=== PATIENT | male | born 1950 | race Caucasian/White ===

== ENCOUNTER 2018-03-12 00:14 | Emergency (ER) | payer MEDICARE, OTHER ==
[~2018-03-12 00:14] MED LIST: ASPI-1471 PO; ATOR-1 PO; CAR6.25 PO; LISI5TAB25 PO; NITR0.4T3 SL; PANT40TA65 PO; PRAS10TA PO
--- NOTE | 2018-03-12 00:43 | ER Report ---
History and Physical Time Seen By MD: 00:42 Hx. of Stated Complaint: PATIENT STATES HE HAS HAD A BURNING IN HIS CHEST SINCE AROUND 1700. PATIENT HAS NOT TAKEN ANY MEDICAITONS PRIOR TO COMING TO ER. HPI/ROS CHIEF COMPLAINT: chest burning HISTORY OF PRESENT ILLNESS: This is a 67 year old male. He is having some burning in his chest. Feels that this is heartburn. Started at 1700. Does not increase with exertion. No nausea or vomiting. No shortness of breath. Has history of heart attacks. Has not had any heart problems for several years now. Just wanted to make sure it was not his heart. No fevers or chills. Has mild chronic cough. Normal bowel and bladder function. Allergies: Coded Allergies: No Known Drug Allergies (Unverified , 03/12/18) Home Meds Reported Medications Prasugrel Hcl (EFFIENT) 10 Mg Tablet, 10 MG PO QDAY 02/06/17 Pantoprazole Sodium (PANTOPRAZOLE SODIUM) 40 Mg Tablet.dr, 40 MG PO QDAY, TAB.SR 02/06/17 Nitroglycerin (NITROGLYCERIN) 0.4 Mg Tab.subl, 0.4 MG SL Q5MIN 02/06/17 Lisinopril (LISINOPRIL) 5 Mg Tablet, 5 MG PO QDAY, TAB 02/06/17 Carvedilol (CARVEDILOL) 6.25 Mg Tab, 6.25 MG PO BID, TAB 02/06/17 Atorvastatin Calcium (ATORVASTATIN CALCIUM) 80 Mg Tablet, 1 TAB PO QDAY, TAB 02/06/17 Aspirin (ASPIR 81) 81 Mg Tablet.dr, 81 MG PO QDAY, TAB 02/06/17 Reviewed Nurses Notes: Yes Hx Substance Use Disorder: No Hx Alcohol Use: No Constitutional Vital Sign - Last 24 Hours 03/12/18 03/12/18 03/12/18 03/12/18 00:14 00:18 00:19 00:29 Pulse ??? 76 92 Resp 20 23 B/P (MAP) 141/96 141/96 (111) Pulse Ox 91 90 O2 Delivery Room Air 03/12/18 03/12/18 03/12/18 03/12/18 00:30 00:44 01:00 01:14 Pulse 74 75 Resp 12 B/P (MAP) 129/84 (99) 117/85 (96) Pulse Ox 90 91 03/12/18 03/12/18 03/12/18 03/12/18 01:29 01:30 01:44 01:59 Pulse 78 75 72 Resp 19 14 B/P (MAP) 107/79 (88) Pulse Ox 90 89 03/12/18 03/12/18 03/12/18 02:00 02:05 02:30 Pulse 74 Resp 14 B/P (MAP) 119/78 (92) 117/81 (93) Pulse Ox 89 Physical Exam General Appearance: The patient is alert. No acute distress. Eyes: Pupils are equal, round. No pallor, injection or icterus. ENT: Mucous membranes are moist. Normal oral mucosa. Posterior oropharynx is normal. Neck: Supple and non tender. Respiratory: Lungs are clear to auscultation. Cardiovascular: Regular rate and rhythm. No murmurs, gallops or rubs. Normal capillary refill. Gastrointestinal: Abdomen is soft and non tender. Normal active bowel sounds. Neurological: Alert and oriented x3. Skin: Warm and dry. DIFFERENTIAL DIAGNOSIS: After history and physical exam, differential diagnosis was considered for chest pain including but not limited to myocardial ischemia, reflux, chest wall pain, pleural inflammation and pulmonary infectious causes. Medical Decision Making Data Points Result Diagram: 03/12/18 0120 03/12/18 0120 Laboratory Hematology Test 03/12/18 01:20 Red Blood Count 5.52 M/uL (4.00-5.60) Mean Corpuscular Volume 87.1 fL (80.0-96.0) Mean Corpuscular Hemoglobin 30.6 pg (26.0-33.0) Mean Corpuscular Hemoglobin Concent 35.2 g/dL (32.0-36.0) Red Cell Distribution Width 14.7 % (11.5-14.5) Mean Platelet Volume 7.5 fL (7.2-11.1) Neutrophils (%) (Auto) 82.9 % (39.4-72.5) Lymphocytes (%) (Auto) 9.4 % (17.6-49.6) Monocytes (%) (Auto) 6.1 % (4.1-12.4) Eosinophils (%) (Auto) 1.1 % (0.4-6.7) Basophils (%) (Auto) 0.5 % (0.3-1.4) Nucleated RBC Relative Count (auto) 0.1 /100WBC Neutrophils # (Auto) 9.5 K/uL (2.0-7.4) Lymphocytes # (Auto) 1.1 K/uL (1.3-3.6) Monocytes # (Auto) 0.7 K/uL (0.3-1.0) Eosinophils # (Auto) 0.1 K/uL (0.0-0.5) Basophils # (Auto) 0.1 K/uL (0.0-0.1) Nucleated RBC Absolute Count (auto) 0.02 K/uL Sodium Level 136 mmol/L (137-145) Potassium Level 3.6 mmol/L (3.5-5.0) Chloride Level 96 mmol/L (98-107) Carbon Dioxide Level 29 mmol/L (22-30) Blood Urea Nitrogen 10 mg/dl (9-21) Creatinine 0.80 mg/dl (0.66-1.25) Glomerular Filtration Rate Calc > 60.0 Random Glucose 112 mg/dl (75-110) Calcium Level 9.5 mg/dl (8.4-10.2) Total Bilirubin 1.4 mg/dl (0.2-1.3) Aspartate Amino Transf (AST/SGOT) 27 U/L (0-35) Alanine Aminotransferase (ALT/SGPT) 27 U/L (0-56) Alkaline Phosphatase 116 U/L (0-126) Troponin I < 0.012 ng/ml Total Protein 7.7 gm/dl (6.3-8.2) Albumin 4.1 g/dl (3.5-5.0) Amylase Level 93 U/L (0-110) Lipase 73 U/L (23-300) Chemistry Test 03/12/18 01:20 White Blood Count 11.5 k/uL (4.5-11.0) Red Blood Count 5.52 M/uL (4.00-5.60) Hemoglobin 16.9 g/dL (14.0-18.0) Hematocrit 48.0 % (42.0-52.0) Mean Corpuscular Volume 87.1 fL (80.0-96.0) Mean Corpuscular Hemoglobin 30.6 pg (26.0-33.0) Mean Corpuscular Hemoglobin Concent 35.2 g/dL (32.0-36.0) Red Cell Distribution Width 14.7 % (11.5-14.5) Platelet Count 207 K/uL (150-450) Mean Platelet Volume 7.5 fL (7.2-11.1) Neutrophils (%) (Auto) 82.9 % (39.4-72.5) Lymphocytes (%) (Auto) 9.4 % (17.6-49.6) Monocytes (%) (Auto) 6.1 % (4.1-12.4) Eosinophils (%) (Auto) 1.1 % (0.4-6.7) Basophils (%) (Auto) 0.5 % (0.3-1.4) Nucleated RBC Relative Count (auto) 0.1 /100WBC Neutrophils # (Auto) 9.5 K/uL (2.0-7.4) Lymphocytes # (Auto) 1.1 K/uL (1.3-3.6) Monocytes # (Auto) 0.7 K/uL (0.3-1.0) Eosinophils # (Auto) 0.1 K/uL (0.0-0.5) Basophils # (Auto) 0.1 K/uL (0.0-0.1) Nucleated RBC Absolute Count (auto) 0.02 K/uL Glomerular Filtration Rate Calc > 60.0 Calcium Level 9.5 mg/dl (8.4-10.2) Total Bilirubin 1.4 mg/dl (0.2-1.3) Aspartate Amino Transf (AST/SGOT) 27 U/L (0-35) Alanine Aminotransferase (ALT/SGPT) 27 U/L (0-56) Alkaline Phosphatase 116 U/L (0-126) Troponin I < 0.012 ng/ml Total Protein 7.7 gm/dl (6.3-8.2) Albumin 4.1 g/dl (3.5-5.0) Amylase Level 93 U/L (0-110) Lipase 73 U/L (23-300) EKG/Imaging EKG Interpretation 12 lead EKG: Rhythm: normal sinus rhythm, rate 74 [place]: Left axis deviation QRS: normal ST segments: Nonspecific, no ST elevation or depression ED Course/Re-evaluation Clinical Indication for ER IV: IV Access ED Course Labs unremarkable. Negative troponin and EKG. Improved with GI cocktail. See instructions below. Decision to Disposition Date: March 12, 2018 Decision to Disposition Time: 02:33 Depart Departure Latest Vital Signs Vital Signs Date Time Temp Pulse Resp B/P (MAP) Pulse Ox O2 Delivery O2 Flow Rate FiO2 03/12/18 02:30 117/81 (93) 03/12/18 02:05 74 14 89 03/12/18 00:18 Room Air Impression: Primary Impression: GERD (gastroesophageal reflux disease) Condition: Improved Disposition: HOME OR SELF-CARE Patient Instructions: Gastroesophageal Reflux Disease (ED) Problem Qualifiers Primary Impression: GERD (gastroesophageal reflux disease) Esophagitis presence: esophagitis presence not specified Qualified Codes: K21.9 - Gastro-esophageal reflux disease without esophagitis DARRELL YEAGER MD March 12, 2018 00:43
[2018-03-12] MEDS ORDERED: PANTOPRAZOLE SOD 40 MG IV VIAL IVP ONE (01:15)
[2018-03-12] MEDS ORDERED: MAG HYD/AL HYD/SIMETH 30ML UDC PO ONE (01:15)
[2018-03-12] MEDS ORDERED: ATRO/SCOPOL/HYOSCY/PB 5 ML ELX PO ONE (01:15)
[2018-03-12] MEDS ORDERED: LIDOCAINE 2% VISC SLN 15ML UDC PO ONE (01:15)
[2018-03-12] MEDS ORDERED: ASPIRIN 81 MG CHEW PO ONE (01:15)
[2018-03-12 02:01] LABS: PLATELET COUNT, AUTOMATED 207 K/uL (150-450)
[2018-03-12 02:30] VITALS: BP 117/81
--- NOTE | 2018-03-12 03:27 | EKG ---
FACILITY: [facility] PATIENT NAME: CRIS CORDOVA : [id number] MR: [id number] V: [id number] EXAM DATE: ORDERING PHYSICIAN: DARRELL YEAGER TECHNOLOGIST: DAMIR Test Reason : CHEST BURNING Blood Pressure : / mmHG Vent. Rate : 074 BPM Atrial Rate : 074 BPM P-R Int : 134 ms QRS Dur : 086 ms QT Int : 388 ms P-R-T Axes : 022 -37 000 degrees QTc Int : 430 ms Normal sinus rhythm Left axis deviation R wave progression consistent with old ant/sep AK vs lead placement T flattening/inversion consistent with inferior ischemia vs normal variant When compared with ECG of 06-FEB-2017 20:36, Relatively unchanged Confirmed by DOMI ATKINSON ([id number]) on 03/12/2018 1:11:47 PM Referred By: Confirmed By:DOMI ATKINSON
== END 2018-03-12 02:45 | disposition home or self-care (01) ==
LOC: ER 00:35
DX: K21.9 Gastro-esophageal reflux disease without esophagitis (principal)
CPT/HCPCS: 82150; 83690; 84484; 85025; 93005; 96374; 99284; A9270; C9113; 82040; 82247; 82310; 82374; 82435; 82565; 82947; 84075; 84132; 84155; 84295; 84450; 84460; 84520

== ENCOUNTER 2018-07-06 14:12 | Inpatient (IN) | payer MEDICARE, OTHER ==
[2018-07-06] VITALS (10 sets, daily range): BP systolic 136–155; BP diastolic 81–96
[~2018-07-06] VITALS: Ht 172.7 cm; Wt 94.3 kg
--- NOTE | 2018-07-06 14:22 | ER Report ---
History and Physical Time Seen By MD: 14:22 HPI/ROS CHIEF COMPLAINT: Lower abdominal pain HISTORY OF PRESENT ILLNESS: This is a 68-year-old male who presents to the emergency department for right lower quadrant pain. Patient states that about 1 0:30 today he was sitting watching television and developed some right lower quadrant pain and noticed that he had some pain in the right scrotal area as well. Patient states that he is concerned that he's herniated some bowel into the right scrotum, this happened on the left however not this severe. Patient states he did try to reduce it on his own with no success. Patient states the pain is 10 out of 10. No nausea or vomiting. No stooling today. One small firm stool yesterday. No fevers or chills. No chest pain or shortness of breath. Pain does not radiate to the back. REVIEW OF SYSTEMS: Constitutional: No fever, no chills. Eyes: No discharge. ENT: No sore throat. Cardiovascular: No chest pain, no palpitations. Respiratory: No cough, no shortness of breath. Gastrointestinal: As above. Genitourinary: As above. Musculoskeletal: No back pain. Skin: No rashes. Neurological: No headache. Allergies: Coded Allergies: No Known Drug Allergies (Unverified , 03/12/18) Home Meds Reported Medications Prasugrel Hcl (EFFIENT) 10 Mg Tablet, 10 MG PO QDAY 02/06/17 Pantoprazole Sodium (PANTOPRAZOLE SODIUM) 40 Mg Tablet.dr, 40 MG PO QDAY, TAB.SR 02/06/17 Nitroglycerin (NITROGLYCERIN) 0.4 Mg Tab.subl, 0.4 MG SL Q5MIN 02/06/17 Lisinopril (LISINOPRIL) 5 Mg Tablet, 5 MG PO QDAY, TAB 02/06/17 Carvedilol (CARVEDILOL) 6.25 Mg Tab, 6.25 MG PO BID, TAB 02/06/17 Atorvastatin Calcium (ATORVASTATIN CALCIUM) 80 Mg Tablet, 1 TAB PO QDAY, TAB 02/06/17 Aspirin (ASPIR 81) 81 Mg Tablet.dr, 81 MG PO QDAY, TAB 02/06/17 Past Medical/Surgical History Patient has a past medical and surgical history of 3 coronary artery stents, in 1999 and 2007, myocardial infarction 4, hypertension, hypercholesterolemia, wears glasses, anal hernia repair on left side 2. Reviewed Nurses Notes: Yes Hx Substance Use Disorder: No Hx Alcohol Use: No Constitutional Vital Sign - Last 24 Hours 07/06/18 07/06/18 07/06/18 07/06/18 14:12 14:21 14:24 14:27 Temp 97.7 Pulse ??? 71 70 Resp 18 B/P (MAP) 162/109 162/109 (126) Pulse Ox 91 93 O2 Delivery Room Air 07/06/18 07/06/18 07/06/18 07/06/18 14:30 14:42 14:57 15:00 Pulse 66 47 Resp 18 32 B/P (MAP) 164/104 (124) 107/64 (78) 106/61 (76) Pulse Ox 93 94 07/06/18 07/06/18 07/06/18 07/06/18 15:04 15:12 15:27 15:30 Pulse 56 66 Resp 5 21 B/P (MAP) 117/61 (79) ???/??? (1665) Pulse Ox 91 95 07/06/18 07/06/18 07/06/18 07/06/18 15:42 15:47 15:52 15:57 Pulse ? 71 Resp 35 Pulse Ox 94 07/06/18 07/06/18 07/06/18 07/06/18 16:00 16:02 16:07 16:12 Pulse 77 71 66 Resp 16 71 0 B/P (MAP) 151/90 (110) Pulse Ox 90 90 91 07/06/18 07/06/18 07/06/18 07/06/18 16:17 16:22 16:27 16:30 Pulse 69 67 79 Resp 0 72 11 B/P (MAP) 151/91 (111) Pulse Ox 92 93 90 07/06/18 07/06/18 07/06/18 07/06/18 16:32 16:37 16:42 16:47 Pulse 72 73 71 78 Resp 9 10 13 19 Pulse Ox 94 91 92 95 07/06/18 07/06/18 07/06/18 07/06/18 16:52 16:57 17:00 17:02 Pulse 67 68 63 Resp 11 8 8 B/P (MAP) 129/95 (106) Pulse Ox 91 92 94 07/06/18 07/06/18 07/06/18 07/06/18 17:05 17:07 17:08 17:12 Pulse 53 72 Resp 17 10 B/P (MAP) 140/102 (115) 142/90 (107) 148/94 (112) Pulse Ox 97 96 07/06/18 07/06/18 07/06/18 07/06/18 17:15 17:17 17:18 17:21 Pulse 79 Resp 9 B/P (MAP) 167/101 (123) 158/106 (123) 166/102 (123) Pulse Ox 90 07/06/18 07/06/18 07/06/18 07/06/18 17:22 17:24 17:27 17:30 Pulse 72 76 Resp 9 19 B/P (MAP) 171/105 (127) 88/74 (79) 147/90 (109) Pulse Ox 100 99 07/06/18 07/06/18 07/06/18 07/06/18 17:32 17:33 17:36 17:37 Pulse 71 73 Resp 31 15 B/P (MAP) 159/86 (110) 153/86 (108) Pulse Ox 95 96 Physical Exam General Appearance: The patient is alert, has no immediate need for airway protection and no signs of toxicity. Eyes: Pupils equal and round no pallor or injection. ENT, Mouth: Mucous membranes are moist. Respiratory: There are no retractions, lungs are clear to auscultation. Cardiovascular: Regular rate and rhythm, no murmurs, clicks or rubs. Gastrointestinal: Abdomen is soft with mild tenderness to the right lower quadrant and left lower quadrant. Distant but normoactive bowel sounds. Genitourinary: Positive cremasteric reflex bilaterally, although delayed on the right. There is a large firm palpable mass that extends from the right lower abdomen into the right scrotum. Painful to light touch. Neurological: Alert and oriented 4. Moving all extremities. Following all commands. No focal neuro deficits. Skin: Warm and dry, no rashes. Musculoskeletal: Neck is supple non tender. Extremities are nontender, nonswollen and have full range of motion. DIFFERENTIAL DIAGNOSIS: After history and physical exam differential diagnosis was considered for abdominal pain including but not limited to appendicitis, cholecystitis, hernia, testicular torsion, gastritis and urinary tract infection. Medical Decision Making Data Points Result Diagram: 07/06/18 6083 07/06/18 1439 Laboratory Hematology Test 07/06/18 14:27 07/06/18 14:39 07/06/18 15:20 Urine Color Yellow Urine Clarity Clear Urine pH 6.0 pH (4.8-9.5) Urine Specific [place] 1.017 Urine Protein Negative mg/dL (NEGATIVE) Urine Glucose (UA) Negative mg/dL (NEGATIVE) Urine Ketones Negative mg/dL (NEGATIVE) Urine Blood Negative (NEGATIVE) Urine Nitrite Negative (NEGATIVE) Urine Bilirubin Negative (NEGATIVE) Urine Urobilinogen 2.0 mg/dL (0.2-1.9) Urine Leukocyte Esterase Negative (NEGATIVE) Urine RBC <1 /HPF (0-2/HPF) Urine WBC <1 /HPF (0-5/HPF) Urine Squamous Epithelial Cells None /LPF (</=FEW) Urine Bacteria Few /HPF (NONE-FEW) Urine Mucus None /HPF (NONE-FEW) Red Blood Count 5.28 M/uL (4.00-5.60) Mean Corpuscular Volume 90.5 fL (80.0-96.0) Mean Corpuscular Hemoglobin 32.0 pg (26.0-33.0) Mean Corpuscular Hemoglobin Concent 35.4 g/dL (32.0-36.0) Red Cell Distribution Width 16.0 % (11.5-14.5) Mean Platelet Volume 7.8 fL (7.2-11.1) Neutrophils (%) (Auto) 87.5 % (39.4-72.5) Lymphocytes (%) (Auto) 7.2 % (17.6-49.6) Monocytes (%) (Auto) 4.1 % (4.1-12.4) Eosinophils (%) (Auto) 0.4 % (0.4-6.7) Basophils (%) (Auto) 0.8 % (0.3-1.4) Nucleated RBC Relative Count (auto) 0.0 /100WBC Neutrophils # (Auto) 9.7 K/uL (2.0-7.4) Lymphocytes # (Auto) 0.8 K/uL (1.3-3.6) Monocytes # (Auto) 0.5 K/uL (0.3-1.0) Eosinophils # (Auto) 0.0 K/uL (0.0-0.5) Basophils # (Auto) 0.1 K/uL (0.0-0.1) Nucleated RBC Absolute Count (auto) 0.00 K/uL Sodium Level 140 mmol/L (137-145) Potassium Level 3.5 mmol/L (3.5-5.0) Chloride Level 98 mmol/L (98-107) Carbon Dioxide Level 33 mmol/L (22-30) Blood Urea Nitrogen 8 mg/dl (9-21) Creatinine 0.70 mg/dl (0.66-1.25) Glomerular Filtration Rate Calc > 60.0 Random Glucose 131 mg/dl (75-110) Calcium Level 9.6 mg/dl (8.4-10.2) Total Bilirubin 1.1 mg/dl (0.2-1.3) Aspartate Amino Transf (AST/SGOT) 118 U/L (0-35) Alanine Aminotransferase (ALT/SGPT) 185 U/L (0-56) Alkaline Phosphatase 131 U/L (0-126) Total Protein 7.8 g/dl (6.3-8.2) Albumin 4.5 g/dl (3.5-5.0) Lactate 2.5 mmol/L (0.7-2.1) Chemistry Test 07/06/18 14:27 07/06/18 14:39 07/06/18 15:20 Urine Color Yellow Urine Clarity Clear Urine pH 6.0 pH (4.8-9.5) Urine Specific [place] 1.017 Urine Protein Negative mg/dL (NEGATIVE) Urine Glucose (UA) Negative mg/dL (NEGATIVE) Urine Ketones Negative mg/dL (NEGATIVE) Urine Blood Negative (NEGATIVE) Urine Nitrite Negative (NEGATIVE) Urine Bilirubin Negative (NEGATIVE) Urine Urobilinogen 2.0 mg/dL (0.2-1.9) Urine Leukocyte Esterase Negative (NEGATIVE) Urine RBC <1 /HPF (0-2/HPF) Urine WBC <1 /HPF (0-5/HPF) Urine Squamous Epithelial Cells None /LPF (</=FEW) Urine Bacteria Few /HPF (NONE-FEW) Urine Mucus None /HPF (NONE-FEW) White Blood Count 11.1 k/uL (4.5-11.0) Red Blood Count 5.28 M/uL (4.00-5.60) Hemoglobin 16.9 g/dL (14.0-18.0) Hematocrit 47.8 % (42.0-52.0) Mean Corpuscular Volume 90.5 fL (80.0-96.0) Mean Corpuscular Hemoglobin 32.0 pg (26.0-33.0) Mean Corpuscular Hemoglobin Concent 35.4 g/dL (32.0-36.0) Red Cell Distribution Width 16.0 % (11.5-14.5) Platelet Count 238 K/uL (150-450) Mean Platelet Volume 7.8 fL (7.2-11.1) Neutrophils (%) (Auto) 87.5 % (39.4-72.5) Lymphocytes (%) (Auto) 7.2 % (17.6-49.6) Monocytes (%) (Auto) 4.1 % (4.1-12.4) Eosinophils (%) (Auto) 0.4 % (0.4-6.7) Basophils (%) (Auto) 0.8 % (0.3-1.4) Nucleated RBC Relative Count (auto) 0.0 /100WBC Neutrophils # (Auto) 9.7 K/uL (2.0-7.4) Lymphocytes # (Auto) 0.8 K/uL (1.3-3.6) Monocytes # (Auto) 0.5 K/uL (0.3-1.0) Eosinophils # (Auto) 0.0 K/uL (0.0-0.5) Basophils # (Auto) 0.1 K/uL (0.0-0.1) Nucleated RBC Absolute Count (auto) 0.00 K/uL Glomerular Filtration Rate Calc > 60.0 Calcium Level 9.6 mg/dl (8.4-10.2) Total Bilirubin 1.1 mg/dl (0.2-1.3) Aspartate Amino Transf (AST/SGOT) 118 U/L (0-35) Alanine Aminotransferase (ALT/SGPT) 185 U/L (0-56) Alkaline Phosphatase 131 U/L (0-126) Total Protein 7.8 g/dl (6.3-8.2) Albumin 4.5 g/dl (3.5-5.0) Lactate 2.5 mmol/L (0.7-2.1) Urinalysis Test 07/06/18 14:27 Urine Color Yellow Urine Clarity Clear Urine pH 6.0 pH (4.8-9.5) Urine Specific [place] 1.017 Urine Protein Negative mg/dL (NEGATIVE) Urine Glucose (UA) Negative mg/dL (NEGATIVE) Urine Ketones Negative mg/dL (NEGATIVE) Urine Blood Negative (NEGATIVE) Urine Nitrite Negative (NEGATIVE) Urine Bilirubin Negative (NEGATIVE) Urine Urobilinogen 2.0 mg/dL (0.2-1.9) Urine Leukocyte Esterase Negative (NEGATIVE) Urine RBC <1 /HPF (0-2/HPF) Urine WBC <1 /HPF (0-5/HPF) Urine Squamous Epithelial Cells None /LPF (</=FEW) Urine Bacteria Few /HPF (NONE-FEW) Urine Mucus None /HPF (NONE-FEW) EKG/Imaging EKG Interpretation 12 lead EKG: Time EKG 1507. Rhythm: Sinus bradycardia, ventricular rate 59 bpm. [place]: Left QRS: normal ST segments: No ST depression or elevation identified. Imaging EXAMINATION: CT abdomen and pelvis with IV contrast HISTORY: Right lower quadrant pain. Query hernia. TECHNIQUE: Axial CT images of the abdomen and pelvis were obtained with IV contrast, with coronal and sagittal 2D reconstructed images. One of the following dose optimization techniques was utilized in the performance of this exam: Automated exposure control; adjustment of the mA and/or kV according to the patient's size; or use of an iterative reconstruction technique. Specific details can be referenced in the facility's radiology CT exam operational policy. Contrast: 85 mL of IV [id number]. COMPARISON: None. FINDINGS: Liver: Negative. Gallbladder and bile ducts: Negative. Spleen: Calcified granulomas in the spleen. Pancreas: Negative. Adrenal glands: Negative. Kidneys: Small bilateral renal cysts, including small parapelvic cysts. The kidneys enhance normally. No hydronephrosis. Bowel and peritoneum: Exam is positive for small bowel obstruction related to a right inguinal hernia. There is dilatation of multiple fluid-filled small bowel loops in the abdomen and pelvis. There is a moderate sized right inguinal hernia, containing a loop of ileum. Small bowel loops are dilated to the level of the hernia. The distal intra-abdominal small bowel segments are relatively decompressed. There is mild wall thickening of the small bowel segment in the hernia sac with adjacent mesenteric edema and a small sliver of fluid, which may indicate incarceration with venous congestion or early ischemic change. Scattered colonic diverticulosis, without evidence of diverticulitis. Otherwise normal CT appearance of the colon. Unremarkable appendix. Trace amount of free fluid in the deep pelvis. No free intraperitoneal air. Small hiatal hernia. Pelvic structures: Negative. Lymph node assessment: Negative. Vessels: Mild vascular calcifications. Normal caliber abdominal aorta. Musculoskeletal: Multilevel degenerative changes throughout the spine. No acute osseous findings. Body wall: Right inguinal hernia described above. Prior left inguinal hernia repair. Abdominal wall structures otherwise appear intact. Lung bases: Negative. IMPRESSION: 1. Small bowel obstruction related to a right inguinal hernia. Moderate-sized hernia sac containing a single loop of ileum. The bowel loop in the hernia sac appears mildly thick-walled with some adjacent edema and a small sliver of fluid. CT appearance is suspicious for incarceration with possible venous congestion or early ischemic change. 2. No other acute intra-abdominal findings. 3. Colonic diverticulosis. 4. Normal appendix. Findings were discussed with HAMILTON MURPHY at 07/06/2018 4:23 PM. Report Dictated By: Juan Miguel Peters MD at 07/06/2018 4:07 PM Report E-Signed By: Juan Miguel Peters MD at 07/06/2018 4:25 PM [id number] ED Course/Re-evaluation Clinical Indication for ER IV: Hydration, IV Access ED Course The patient was admitted to a room. A history and physical were obtained. Differential diagnoses were considered. IV was started. A CBC, CMP, lactate and urine were collected. CBC showing a white count of 11.1, H&H 16.9 and 47.8, platelets 238, glucose 131, BUN 8 creatinine 0.70. The patient was given a 1 L normal saline bolus.Patient was given 4 mg Zofran 2, so for 5 mg IV Dilaudid, 100 micrograms IV fentanyl, repeat 0.5 mg hydromorphone. During the procedure patient started retching, was given an additional 8 mg IV Zofran. A total of 100 mg of propofol was used for sedation. Patient tolerated the procedure well. Patient did become mildly apneic and was bagged for approximately 2-[address] of the abdomen pelvis showing a small bowel obstruction related to a right inguinal hernia. Moderate-sized hernia sac containing a single loop of ileum. The bowel loop in the hernia sac appears mildly thick-walled with some adjacent edema and a small sliver of fluid. CT appearance is suspicious for incarceration with possible venous congestion or early ischemic change. Prior to the procedure, patient did have significant pain which did cause a vasovagal event, heart rate did drop down to the 40s and he became diaphoretic, EKG was obtained which showed no concerning rhythms, no ST elevation or depression. Patient is also taking Effient, the patient was typed and screened did not order platelets. Dr. Hall was contacted, the patient will be admitted to the ICU for small bowel obstruction and incarcerated hernia. The patient had no other questions or concerns at the time of admission. Patient is resting comfortably. Vital signs of been stable. 07/06/2018 3:18:44 pm the nursing staff to alert me to the patient's heart rate, upper 40s, And blood pressure dropping, he became diaphoretic, no chest pain or shortness of breath. I did go in to evaluate the patient he is alert and oriented, his lips are pale. Patient states that the pain is increasing in the right lower quadrant into the groin. I did reassess him and try to reduce the hernia I was unsuccessful. 2nd IV was started, patient was typed and screened, lactate was obtained. EKG showing sinus bradycardia otherwise unremarkable. 07/06/2018 3:41:57 pm the patient is doing much better, pallor has improved, the patient's blood pressure has improved and heart rate is in the 60s. 07/06/2018 4:28:20 pm I did speak with Dr. Hall regarding the patient's case, she will come in and evaluate the patient and will make a decision on the platelets. 07/06/2018 4:57:[address] Hall is here, were going to try to sedate Mr. Allan and try to reduce the hernia and place an NG tube. 07/06/2018 5:11:36 pm the patient was moved from room 4 to room 5, he was sedat ed with her milligrams of propofol, Dr. Hall was able to reduce the hernia. Patient tolerated well. Patient pain improved after the procedure. Patient will be admitted to Dr. Hall, patient will be going to ICU for small bowel obstruction and right inguinal hernia incarceration. Decision to Disposition Date: Jul 06, 2018 Decision to Disposition Time: 17:20 Depart Departure Latest Vital Signs Vital Signs Date Time Temp Pulse Resp B/P (MAP) Pulse Ox O2 Delivery O2 Flow Rate FiO2 07/06/18 17:37 73 15 96 07/06/18 17:36 153/86 (108) 07/06/18 14:21 97.7 Room Air Impression: Primary Impression: Incarcerated inguinal hernia, unilateral Additional Impression: Small bowel obstruction Condition: Improved Disposition: Admitted from ER (to ICU) Problem Qualifiers HAMILTON MURPHY SCALE TESTER-BC Jul 06, 2018 14:22
[2018-07-06] MEDS ORDERED: NS(*) 0.9% 1000 ML BAG 1,000 ML IV ONE (14:43)
[2018-07-06] MEDS ORDERED: ONDANSETRON 4 MG/2 ML VIAL IVP ONE ×2 (14:45→16:30)
[2018-07-06] MEDS ORDERED: HYDROMORPHONE HCL 1 MG/ML SYRINGE IVP ONE ×2 (14:45→16:30)
[2018-07-06 14:52] LABS: PLATELET COUNT, AUTOMATED 238 K/uL (150-450)
[2018-07-06] MEDS ORDERED: fentaNYL CITR 100 MCG/2 ML AMP IVP ONE (15:05)
--- NOTE | 2018-07-06 15:12 | EKG ---
FACILITY: [facility] [place] PATIENT NAME: CRIS CORDOVA : [id number] MR: [id number] V: [id number] EXAM DATE: ORDERING PHYSICIAN: HAMILTON MURPHY TECHNOLOGIST: NANCY Vu Reason : BRADYCARDIA Blood Pressure : / mmHG Vent. Rate : 059 BPM Atrial Rate : 059 BPM P-R Int : 130 ms QRS Dur : 080 ms QT Int : 426 ms P-R-T Axes : 023 -32 -15 degrees QTc Int : 421 ms Sinus bradycardia Left axis deviation T flattening/inversion inferiorly vs normal variant When compared with ECG of 12-MAR-2018 01:20, Now R wave progression has normalized Confirmed by DOMI ATKINSON ([id number]) on 07/06/2018 8:30:07 PM Referred By: Confirmed By:DOMI ATKINSON
[2018-07-06] MEDS ORDERED: IOPAMIDOL 76% 100 ML INFUS BTL 100 ML ONE (15:28)
--- NOTE | 2018-07-06 16:28 | RADIOLOGY IMAGING REPORT ---
[facility] PATIENT NAME: Kenyon Allan : 1950 MR: [id number] V: [id number] EXAM DATE: ORDERING PHYSICIAN: HAMILTON MURPHY TECHNOLOGIST: Location: [facility] Patient: Kenyon Allan : 1950 Visit/Account:[id number] Date of Sevice: 07/06/2018 EXAMINATION: CT abdomen and pelvis with IV contrast HISTORY: Right lower quadrant pain. Query hernia. TECHNIQUE: Axial CT images of the abdomen and pelvis were obtained with IV contrast, with coronal a nd sagittal 2D reconstructed images. One of the following dose optimization techniques was utilized in the performance of this exam: Autom ated exposure control; adjustment of the mA and/or kV according to the patient's size; or use of an i terative reconstruction technique. Specific details can be referenced in the facility's radiology C T exam operational policy. Contrast: 85 mL of IV Isovue-370. COMPARISON: None. FINDINGS: Liver: Negative. Gallbladder and bile ducts: Negative. Spleen: Calcified granulomas in the spleen. Pancreas: Negative. Adrenal glands: Negative. Kidneys: Small bilateral renal cysts, including small parapelvic cysts. The kidneys enhance normally . No hydronephrosis. Bowel and peritoneum: Exam is positive for small bowel obstruction related to a right inguinal herni a. There is dilatation of multiple fluid-filled small bowel loops in the abdomen and pelvis. There is a moderate sized right inguinal hernia, containing a loop of ileum. Small bowel loops are dilated to the level of the hernia. The distal intra-abdominal small bowel segments are relatively decompressed . There is mild wall thickening of the small bowel segment in the hernia sac with adjacent mesenteric edema and a small sliver of fluid, which may indicate incarceration with venous congestion or early ischemic change. Scattered colonic diverticulosis, without evidence of diverticulitis. Otherwise normal CT appearance of the colon. Unremarkable appendix. Trace amount of free fluid in the deep pelvis. No free intraperi toneal air. Small hiatal hernia. Pelvic structures: Negative. Lymph node assessment: Negative. Vessels: Mild vascular calcifications. Normal caliber abdominal aorta. Musculoskeletal: Multilevel degenerative changes throughout the spine. No acute osseous findings. Body wall: Right inguinal hernia described above. Prior left inguinal hernia repair. Abdominal wall structures otherwise appear intact. Lung bases: Negative. IMPRESSION: 1. Small bowel obstruction related to a right inguinal hernia. Moderate-sized hernia sac containing a single loop of ileum. The bowel loop in the hernia sac appears mildly thick-walled with some adjacen t edema and a small sliver of fluid. CT appearance is suspicious for incarceration with possible veno us congestion or early ischemic change. 2. No other acute intra-abdominal findings. 3. Colonic diverticulosis. 4. Normal appendix. Findings were discussed with HAMILTON MURPHY at 07/06/2018 4:23 PM. Report Dictated By: Juan Miguel Peters MD at 07/06/2018 4:07 PM Report E-Signed By: Juan Miguel Peters MD at 07/06/2018 4:25 PM WSN:[id number]
[2018-07-06] MEDS ORDERED: PROPOFOL EMUL 10MG/ML 20 ML VL IVP ONE (16:55)
[2018-07-06] MEDS ORDERED: ONDANSETRON 4 MG/2 ML VIAL ONE (17:08)
--- NOTE | 2018-07-06 17:54 | RADIOLOGY IMAGING REPORT ---
FACILITY: [facility] PATIENT NAME: Kenyon Allan : 1950 MR: [id number] V: [id number] EXAM DATE: ORDERING PHYSICIAN: HAMILTON MURPHY TECHNOLOGIST: Location: [facility] Patient: Kenyon Allan : 1950 Visit/Account:[id number] Date of Sevice: 07/06/2018 EXAMINATION: Portable AP Chest HISTORY: NG placement. COMPARISON: 02/06/2017. FINDINGS: NG tube looped in the gastric fundus. The lungs are clear. No focal consolidation or pleural effusion. No pneumothorax. Normal heart size and pulmonary vascularity. Visualized osseous structures appear intact. IMPRESSION: NG tube in the stomach. Report Dictated By: Juan Miguel Peters MD at 07/06/2018 5:50 PM Report E-Signed By: Juan Miguel Peters MD at 07/06/2018 5:51 PM WSN:[id number]
[2018-07-06] MEDS ORDERED: hydrALAZINE HCL 20 MG/ML VIAL IVP PRN (19:45)
[2018-07-06] MEDS ORDERED: KCL/D1/2NS 20 MEQ 1000 ML 1,000 ML IV ONE (19:45)
[2018-07-06] MEDS: METOPROLOL TART 5 MG/5 ML VIAL IVP SCH (20:12)
[2018-07-06 20:42] LABS: PLATELET COUNT, AUTOMATED 213 K/uL (150-450)
[2018-07-07] VITALS (35 sets, daily range): BP systolic 124–151; BP diastolic 79–96; Ht 172.7 cm; Wt 94.3 kg
[2018-07-07] MEDS: METOPROLOL TART 5 MG/5 ML VIAL IVP SCH ×4 (02:20→20:37)
[2018-07-07] MEDS: KCL/D1/2NS 20 MEQ 1000 ML 1,000 ML IV PRN ×2 (03:46→12:09)
[2018-07-07 06:10] LABS: PLATELET COUNT, AUTOMATED 210 K/uL (150-450)
--- NOTE | 2018-07-07 07:27 | General Surgery Progress Note ---
Subjective Progress Notes Subjective No pain. No complaints this morning. Passing flatus. No N/V. Physical Exam Vital Signs Date Time Temp Pulse Resp B/P (MAP) Pulse Ox O2 Delivery O2 Flow Rate FiO2 07/07/18 06:30 92 11 136/88 (104) 94 Nasal Cannula 2.0 07/07/18 03:30 98.4 Intake and Output 07/07/18 06:59 Intake Total 1900 ml Output Total 1050 ml Balance 850 ml Intake IV Total 1900 ml Output Urine Total 350 ml Gastric Drainage Total 400 ml Other 300 ml # Voids 50 # Bowel Movements 1 General Appearance: Alert, Awake, No Acute Distress, Afebrile GI: Soft and Non-Tender (No palpable hernia on exam this morning.) Extremities: Warm, Perfused Result Diagram: 07/07/1851707/07/18517 Assessment and Plan Problems: (1) Incarcerated inguinal hernia, unilateral Status: Resolved Assessment & Plan: 07/07/18: Doing well. Hernia is not protruding on this morning's exam. Benign abdominal exam. Will remove NG tube and start clear diet. Transfer to [place]. Will need to fix his hernia sooner, rather than later but need to let Effient wear off which takes 7 days. Right now he's doing great. If he does well today then possibly home tomorrow with close outpatient f/u to coordinate RIH repair before another incarceration occurs. Condition Stable. Time Spent: < 30 min Exam Sepsis Risk: No Definite Risk LUCIAN BACK MD Jul 07, 2018 07:27
[2018-07-07] MEDS ORDERED: PANTOPRAZOLE SOD 40 MG IV VIAL IVP SCH (09:00)
[2018-07-07] MEDS ORDERED: KCL/D1/2NS 20 MEQ 1000 ML 1,000 ML IV PRN (19:27)
[2018-07-08 02:17] VITALS: BP 133/92
[2018-07-08] MEDS: METOPROLOL TART 5 MG/5 ML VIAL IVP SCH (02:18)
[2018-07-08 06:02] LABS: PLATELET COUNT, AUTOMATED 189 K/uL (150-450)
[2018-07-08] MEDS ORDERED: NITROGLYCERIN 0.4 MG SUBL SL SCH (06:55)
--- NOTE | 2018-07-08 06:57 | General Surgery Progress Note ---
Subjective Progress Notes Subjective No complaints this morning. No abdominal pain. Passing flatus. Physical Exam Vital Signs Date Time Temp Pulse Resp B/P (MAP) Pulse Ox O2 Delivery O2 Flow Rate FiO2 07/08/18 02:17 80 133/92 (106) 07/07/18 22:25 16 90 Room Air 07/07/18 19:30 0.5 07/07/18 19:04 97.7 Intake and Output 07/08/18 07:00 Intake Total 3196 ml Output Total 5175 ml Balance -1979 ml Intake Oral 2690 ml IV Total 506 ml Output Urine Total 5125 ml Gastric Drainage Total 50 ml General Appearance: Alert, Awake, No Acute Distress, Afebrile GI: Soft and Non-Tender (Hernia is reduced) Extremities: Warm, Perfused Result Diagram: 07/08/18 0540 07/08/18 0540 Assessment and Plan Problems: (1) Incarcerated inguinal hernia, unilateral Status: Resolved Assessment & Plan: 07/07/18: Doing well. Hernia is not protruding on this morning's exam. Benign abdominal exam. Will remove NG tube and start clear diet. Transfer to [place]. Will need to fix his hernia sooner, rather than later but need to let Effient wear off which takes 7 days. Right now he's doing great. If he does well today then possibly home tomorrow with close outpatient f/u to coordinate RIH repair before another incarceration occurs. 07/08/18: Doing well. Hernia remains reduced. No abdominal complaints. Will start regular diet today. He needs to have this hernia repaired LEVI. He remains off his antiplatelet med. [facility] I have instructed him to call them today to schedule an appointment with a surgeon there so he can be scheduled to have it repaired LEVI before it reincarcarates (or worse). I will check in with him later. If he tolerates a diet and has appropriate expeditious f/u then he could be d/vivek to home later today. Condition Stable Time Spent: < 30 min Exam Sepsis Risk: No Definite Risk LUCIAN BACK MD Jul 08, 2018 06:57
[2018-07-08 07:14] VITALS: BP 143/90
[2018-07-08] MEDS ORDERED: LISINOPRIL 5 MG TAB PO SCH (09:00)
[2018-07-08] MEDS ORDERED: ATORVASTATIN 40 MG TAB PO SCH (09:00)
[2018-07-08] MEDS ORDERED: CARVEDILOL 6.25 MG TAB PO SCH (09:00)
[2018-07-08] MEDS ORDERED: PANTOPRAZOLE SOD 40 MG TABEC PO SCH (09:00)
[2018-07-08] MEDS ORDERED: ASPIRIN 81 MG ENTERIC COATED PO SCH (09:00)
[2018-07-08 11:53] VITALS: BP 134/96
[2018-07-08 16:10] VITALS: BP 133/86
--- NOTE | 2018-07-08 18:29 | Short(Outpt) Discharge Summary ---
Discharge Summary Reason for Hosp/Final Diag: (1) Incarcerated inguinal hernia, unilateral Status: Resolved Hospital Course & Plan: 07/07/18: Doing well. Hernia is not protruding on this morning's exam. Benign abdominal exam. Will remove NG tube and start clear diet. Transfer to [place]. Will need to fix his hernia sooner, rather than later but need to let Effient wear off which takes 7 days. Right now he's doing great. If he does well today then possibly home tomorrow with close outpatient f/u to coordinate RIH repair before another incarceration occurs. 07/08/18: Doing well. Hernia remains reduced. No abdominal complaints. Will start regular diet today. He needs to have this hernia repaired LEVI. He remains off his antiplatelet med. He wants to go to the [facility] to have it repaired. I have instructed him to call them today to schedule an appointment with a surgeon there so he can be scheduled to have it repaired LEVI before it reincarcarates (or worse). I will check in with him later. If he tolerates a diet and has appropriate expeditious f/u then he could be d/vivek to home later today. 07/08/18: Continues to do well. He wishes to go home. He's tried to schedule an appt at [facility] but can't get in until July. I discussed performing surgery on him this Saturday and he would like to proceed with this. Will d/c to home this evening. He will stay off the Effiant and we'll plan on outpatient robotic RIH repair on Saturday of this week. Departure Discharge to: Home, Self Care Discharge Instructions Home Meds Reported Medications Prasugrel Hcl (EFFIENT) 10 Mg Tablet, 10 MG PO QDAY 02/06/17 Pantoprazole Sodium (PANTOPRAZOLE SODIUM) 40 Mg Tablet.dr, 40 MG PO QDAY, TAB.SR 02/06/17 Nitroglycerin (NITROGLYCERIN) 0.4 Mg Tab.subl, 0.4 MG SL Q5MIN 02/06/17 Lisinopril (LISINOPRIL) 5 Mg Tablet, 5 MG PO QDAY, TAB 02/06/17 Carvedilol (CARVEDILOL) 6.25 Mg Tab, 6.25 MG PO BID, TAB 02/06/17 Atorvastatin Calcium (ATORVASTATIN CALCIUM) 80 Mg Tablet, 1 TAB PO QDAY, TAB 02/06/17 Aspirin (ASPIR 81) 81 Mg Tablet.dr, 81 MG PO QDAY, TAB 02/06/17 Diet: Regular Activity: As Tolerated Special Instructions: Stay off Effiant until after surgery. You may take the baby aspirin but avoid full strength aspirin and avoid all NSAIDS (ibuprofen, motrin, aleve, advil, naproxen, naprosyn, etc). Tylenol is OK. My nurse, Elizabeth, will call you tomorrow at 10:00 to discuss surgery with you and how to get ready for surgery. I will add you to my surgical schedule for this Saturday afternoon. Keep applying pressure to your right groin with your hand to keep the hernia reduced and prevent it from getting stuck out again. Apply pressure with your hand to your right groin when ever you sneeze or cough. LUCIAN BACK MD Jul 08, 2018 18:29
[2018-07-10] MEDS ORDERED: PRAS10TA PO (08:55)
== END 2018-07-08 18:55 | disposition home or self-care (01) | DRG 395 ==
LOC: ER 14:28 → ICU 17:38 → MED 07-07 16:15
PROVIDERS: ADMIT Surgery; ATTEND Surgery
PROC: 0D9670Z Drainage of Stomach with Drainage Device, Via Natural or Artificial Opening (ICD-10-PCS; principal; 2018-07-06)
DX: K40.30 Unilateral inguinal hernia, with obstruction, without gangrene, not specified as recurrent (principal); K21.9 Gastro-esophageal reflux disease without esophagitis; E78.00 Pure hypercholesterolemia, unspecified; I10 Essential (primary) hypertension; I25.2 Old myocardial infarction; Z79.82 Long term (current) use of aspirin; Z95.5 Presence of coronary angioplasty implant and graft; Z97.3 Presence of spectacles and contact lenses; Z98.890 Other specified postprocedural states
CPT/HCPCS: 36415; 71045; 74177; 81001; 82040; 82247; 82310; 82374; 82435; 82565; 82947; 83605; 84075; 84132; 84155; 84295; 84450; 84460; 84520; 85025; 86850; 86900; 86901; 93005; 96361; 96374; 96375; 96376; 99151; 99156; 99285; C9113; J1170; J2405; J2704; J3010; J3480; J3490; J7030; Q9967

== ENCOUNTER 2018-07-11 01:43 | Observation (INO) | payer MEDICARE, OTHER ==
[2018-07-07 09:32] VITALS: Ht 174 cm; Wt 90.7 kg
--- NOTE | 2018-07-09 17:36 | Gen Surgery History & Physical ---
History of Present Illness Chief Complaint Recently incarcerated [facility] History of Present Illness 68-year-old gentleman recently admitted to the hospital with an incarcerated right inguinal hernia that was reduced under sedation. He was on blood thinners for coronary stents and so surgery was not completed at that time. He was observed for 2 days in the hospital and remained asymptomatic and so was discharged and scheduled for outpatient right inguinal hernia repair to give his blood thinner, Effient, 5 days to get out of his system. He has never before had a right inguinal hernia repair. He's had 2 left inguinal hernia repairs. History Problems: (1) Hypertension Status: Chronic (2) Hyperlipidemia Status: Chronic (3) Coronary artery disease Status: Chronic (4) History of coronary artery stent placement Status: Chronic (5) GERD (gastroesophageal reflux disease) Status: Chronic Home Meds Reported Medications Pantoprazole Sodium (PANTOPRAZOLE SODIUM) 40 Mg Tablet.dr, 40 MG PO QDAY, TAB.SR 02/06/17 Nitroglycerin (NITROGLYCERIN) 0.4 Mg Tab.subl, 0.4 MG SL Q5MIN 02/06/17 Lisinopril (LISINOPRIL) 5 Mg Tablet, 5 MG PO QDAY, TAB 02/06/17 Carvedilol (CARVEDILOL) 6.25 Mg Tab, 6.25 MG PO BID, TAB 02/06/17 Atorvastatin Calcium (ATORVASTATIN CALCIUM) 80 Mg Tablet, 1 TAB PO QDAY, TAB 02/06/17 Aspirin (ASPIR 81) 81 Mg Tablet.dr, 81 MG PO QDAY, TAB 02/06/17 Discontinued Reported Medications Prasugrel Hcl (EFFIENT) 10 Mg Tablet, 10 MG PO QDAY 02/06/17 Allergies: Coded Allergies: No Known Drug Allergies (Unverified , 03/12/18) Review of Systems All Systems Reviewed/Normal: Yes, Except as Noted Exam General Appearance: Alert, Awake, No Acute Distress, Afebrile Neuro: No Gross deficits Eyes: PERRLA Cardiovascular: Regular Rate and Rhythm Respiratory: Clear to Auscultation GI: Abd Soft and Non-Tender (right inguinal hernia is soft and reducible) Extremities: Warm, Perfused Psych: Alert & Oriented X3, Appropriate Mood & Affect Assessment and Plan Problems: (1) Incarcerated inguinal hernia, unilateral Status: Resolved Assessment & Plan: Patient's right inguinal hernia has been reduced. We have given him 5 days for the Effient to leave his system and allow his clotting to return to normal. Patient would like to proceed with robotic right inguinal hernia repair so as to prevent future episodes of incarceration. I have explained the procedure to him in great detail as well as the alternatives, risks, expected recovery. He indicates his understanding of this discussion and his questions have been answered. He would like to proceed with robotic right inguinal hernia repair. We will also check the left side for a recurrent hernia and repair this concurrently if found. We will plan on restarting his Effient 3 days after surgery. Condition Stable Time Spent: < 30 min Venous Thromboembolism VTE Risk Physician Assess for VTE Risk: Yes Patient's VTE Risk: Low VTE Diagnostic Test 2 Days Prior to Admit: No Antithrombotics Is Pt On Any Antithrombotics?: No LUCIAN BACK MD Jul 09, 2018 17:36
[~2018-07-11] VITALS: Ht 174 cm; Wt 90.7 kg
[2018-07-11] VITALS (9 sets, daily range): BP systolic 109–130; BP diastolic 71–97
[2018-07-11] MEDS ORDERED: fentaNYL CITR 250 MCG/5 ML AMP ONE (14:54)
[2018-07-11] MEDS ORDERED: LIDOCAINE 2% IV 100 MG/5ML SYR ONE (14:55)
[2018-07-11] MEDS ORDERED: SUGAMMADEX SOD 200 MG/2 ML SDV ONE (14:59)
[2018-07-11] MEDS ORDERED: PROPOFOL EMUL(*) 10MG/ML 20 ML 20 ML ONE (15:01)
[2018-07-11] MEDS ORDERED: LIDOCAINE/SOD BICARB 8.4% SYR ID ONE (15:25)
[2018-07-11] MEDS ORDERED: FAMOTIDINE 20 MG TAB PO ONE (15:25)
[2018-07-11] MEDS ORDERED: ACETAMINOPHEN 500 MG TAB PO ONE (15:25)
[2018-07-11] MEDS ORDERED: ceFAZolin(*) 2GM/D5W 50ML 50 ML IVPB ONE (15:25)
[2018-07-11] MEDS ORDERED: PREGABALIN 150 MG CAPSULE PO ONE (15:25)
[2018-07-11] MEDS ORDERED: MIDAZOLAM 2 MG/2 ML VIAL IVP PRN (15:25)
[2018-07-11] MEDS ORDERED: NORMOSOL R SOLN(*) 1000 ML BAG 1,000 ML IV PRN (15:25)
[2018-07-11 15:26] LABS: INR 1.05
[2018-07-11] MEDS ORDERED: DEXAMETHASONE SOD 4 MG/ML VIAL ONE (16:32)
[2018-07-11] MEDS ORDERED: ONDANSETRON 4 MG/2 ML VIAL ONE (16:33)
[2018-07-11] MEDS ORDERED: KETAMINE HCL 200 MG/20 ML MDV ONE (16:34)
[2018-07-11] MEDS ORDERED: ROPIVACAINE 0.5% 20 ML VIAL ONE (16:41)
[2018-07-11] MEDS ORDERED: VASOPRESSIN 20 UNIT/ML VIAL ONE (17:27)
[2018-07-11] MEDS ORDERED: CELLULOSE HEMOSTAT 1 EACH PKT OP-SITE ONE (18:04)
[2018-07-11] MEDS ORDERED: NS(*) 0.9% 1000 ML BAG 1,000 ML IV PRN (18:39)
[2018-07-11] MEDS ORDERED: ONDANSETRON 4 MG/2 ML VIAL IVP PRN (18:40)
[2018-07-11] MEDS ORDERED: FLUSH 10 ML SYR IVP PRN (18:40)
[2018-07-11] MEDS ORDERED: MORPHINE 2 MG/ML SYR IVP PRN (18:40)
--- NOTE | 2018-07-11 18:50 | Post Operative Progress Note ---
Post Operative Progress Note Date: Jul 11, 2018 Time: 18:43 Surgeon: Oscar Dictation number: [id number] Anesthesia: GETA by Dr. Crow Pre-Op Diagnosis: RIH with recent incarceration Post-Op Diagnosis: MANGO Findings: RIH, indirect Procedure(s): Robotic RIH repair Specimen Removed:(May be N/A): None Complications: None Fluids: See anesthesia record Estimated Blood Loss: Minimal Date OP Note Dictated: Jul 11, 2018 Time OP Note Dictated: 18:44 LUCIAN BACK MD Jul 11, 2018 18:50
[2018-07-11] MEDS ORDERED: PROMETHAZINE 25 MG/ML 1 ML AMP ONE (20:18)
[2018-07-11] MEDS: CARVEDILOL 6.25 MG TAB PO SCH (22:25)
[2018-07-11] MEDS: DOCUSATE SODIUM 100 MG CAP PO SCH (22:25)
[2018-07-12] VITALS (14 sets, daily range): BP systolic 108–149; BP diastolic 70–96
--- NOTE | 2018-07-12 07:39 | OPERATIVE REPORT 1 ---
EVENT DATE: July 11, 2018 SURGEON: Pancho Moore M.D. ANESTHESIOLOGIST: Rell Crow M.D. ANESTHESIA: General endotracheal. PREOPERATIVE DIAGNOSIS Right inguinal hernia with recent incarceration. POSTOPERATIVE DIAGNOSIS Right inguinal hernia with recent incarceration. PROCEDURE PERFORMED Robotic right inguinal hernia repair. COMPLICATIONS None. CONDITION Stable. ESTIMATED BLOOD LOSS Minimal. INDICATIONS This is a 68-year-old gentleman who came into the emergency room last weekend with an incarcerated right inguinal hernia. He was on Effient for coronary artery disease with cardiac stents, the last placed three years ago, so the surgery was not completed immediately but he was sedated and the hernia was reduced and he was observed for 48 hours to make sure there was no strangulated viscera that had been incarcerated and he did well so he was discharged with plans for repair after the Effient had gotten out of his system. DESCRIPTION OF PROCEDURE The patient was brought to the operating room and placed supine on the operating table. General endotracheal anesthesia was administered and his abdomen was prepped and draped in a sterile fashion. A time-out was completed and I injected the left subcostal skin with 0.5% ropivacaine plain. I made a transverse 8 mm incision and used the Veress needle and accessed the peritoneal cavity with the Veress needle and insufflated to a pressure of 15 mmHg. I then inserted an 8 mm robotic optical port with a camera and focused into the inflated peritoneal cavity under direct visualization without any problems. I then inspected the groin and there was only a right inguinal hernia. There were some adhesions in the left groin so I could not directly tell there was no hernia but he had already had two left inguinal hernia repairs and there was obvious hernia on the left side today. I then placed an 8 mm port in the right subcostal skin and an 8 mm robotic port in the epigastric midline. I then inserted a right sided piece of ProGrip mesh as well as 9-inch absorbable V-Loc suture into the peritoneal cavity under direct visualization. The patient was then placed in Trendelenburg and the robot was brought in, docked and targeted and the instruments inserted. I scrubbed out and went to the console and then divided the peritoneum from distal medial anterior superior iliac spine all the way through to the midline cephalad to the patient's groin and then stripped the peritoneum down and created a space in the peritoneal space all the way down. I did this all the way so I could see the entire iliopubic tract as well as pubic tubercle and Justin's ligament. There was a large hernia and hernia sac so I this from the cord structures. I did skeletonize the cord structures and clearly identified the gonadal vessels and the vas deferens and these were all preserved. The sac was large and went all the way down under the scrotum. I worked at it from the cord structures for quite a while and ultimately ended up just dividing the sac and then leaving the distal end in the scrotum widely open. Once this was completely , I deployed the ProGrip mesh into this space and unfurled it so it covered the pubic tubercle and Justin's ligament and the entire myopectineal arch and laid nice and flat and there were no folds, especially at the bottom. I had dissected preperitoneal tissues well away from below the ileopubic tract so that it laid flat without folding over. I then sewed the peritoneum back together with the absorbable V- Loc suture and included in this was the hernia sac, which I included in the enclosure so it obliterated the opening that I had divided the sac with in the closure. After this was completed, the robotic instruments were removed. The robot was undocked. The abdomen was desufflated. The bed was flat and the ports were removed. The skin was closed at each incision with 4-0 Monocryl subcuticular sutures. Skin was cleaned and dried and steri-strips were applied followed by sterile surgical dressings. The patient was then awakened and extubated in the operating room and transported to the recovery room in stable condition, having tolerated the procedure without any apparent problems. ANN
[2018-07-12] MEDS: CARVEDILOL 6.25 MG TAB PO SCH (08:55)
[2018-07-12] MEDS: DOCUSATE SODIUM 100 MG CAP PO SCH (08:55)
[2018-07-12] MEDS ORDERED: PANTOPRAZOLE SOD 40 MG TABEC PO SCH (09:00)
[2018-07-12] MEDS ORDERED: ATORVASTATIN 40 MG TAB PO SCH (09:00)
[2018-07-12] MEDS ORDERED: ASPIRIN 81 MG ENTERIC COATED PO SCH (09:00)
[2018-07-12] MEDS ORDERED: LISINOPRIL 5 MG TAB PO SCH (09:00)
--- NOTE | 2018-07-12 09:33 | Short(Outpt) Discharge Summary ---
Discharge Summary Reason for Hosp/Final Diag: (1) Incarcerated inguinal hernia, unilateral Status: Resolved Hospital Course & Plan: Patient's right inguinal hernia has been reduced. We have given him 5 days for the Effient to leave his system and allow his clotting to return to normal. Patient would like to proceed with robotic right inguinal hernia repair so as to prevent future episodes of incarceration. I have explained the procedure to him in great detail as well as the alternatives, risks, expected recovery. He indicates his understanding of this discussion and his questions have been answered. He would like to proceed with robotic right inguinal hernia repair. We will also check the left side for a recurrent hernia and repair this concurrently if found. We will plan on restarting his Effient 3 days after surgery. 07/12/18: POD#1 s/p robotic RIH repair. No complaints this morning. Not using any pain medications. Will d/c to home. Departure Discharge to: Home, Self Care Discharge Instructions Home Meds Reported Medications Prasugrel Hcl (EFFIENT) 10 Mg Tablet, 10 MG PO DAILY 07/10/18 Pantoprazole Sodium (PANTOPRAZOLE SODIUM) 40 Mg Tablet.dr, 40 MG PO QDAY, TAB.SR 02/06/17 Nitroglycerin (NITROGLYCERIN) 0.4 Mg Tab.subl, 0.4 MG SL Q5MIN 02/06/17 Lisinopril (LISINOPRIL) 5 Mg Tablet, 5 MG PO QDAY, TAB 02/06/17 Carvedilol (CARVEDILOL) 6.25 Mg Tab, 6.25 MG PO BID, TAB 02/06/17 Atorvastatin Calcium (ATORVASTATIN CALCIUM) 80 Mg Tablet, 1 TAB PO QDAY, TAB 02/06/17 Aspirin (ASPIR 81) 81 Mg Tablet.dr, 81 MG PO QDAY, TAB 02/06/17 Discontinued Reported Medications Prasugrel Hcl (EFFIENT) 10 Mg Tablet, 10 MG PO QDAY 02/06/17 Follow up Referrals: General Surgery - 07/29/18 @ Surgery, General with LUCIAN BACK MD You have a follow up appointment scheduled with Dr. Back on 07/29/18, at 4:15pm. Diet: Regular Activity: No Heavy Lifting Special Instructions: You may remove the white surgical dressings on 07/13/18, then you can shower. After showering, leave the incisions open to air but leave the steristrips in place until they fall off on their own. Do not immerse the incisions for 2 weeks. Avoid any activities that involves straining or lifting more than 10 pounds for 2 weeks after surgery. Don't take Effient until 07/15/18. LUCIAN BACK MD Jul 12, 2018 09:33
== END 2018-07-12 09:28 | disposition home or self-care (01) ==
LOC: OR 01:43 → MED 20:30
PROVIDERS: ADMIT Surgery; ATTEND Surgery
DX: K40.30 Unilateral inguinal hernia, with obstruction, without gangrene, not specified as recurrent (principal); I10 Essential (primary) hypertension; E78.5 Hyperlipidemia, unspecified; I25.810 Atherosclerosis of coronary artery bypass graft(s) without angina pectoris
CPT/HCPCS: 36415; 49650; 85610; A9270; C1781; G0378; J1100; J2001; J2405; J2550; J2704; J2795; J3010; J3490; S2900; 96372; J0690

== ENCOUNTER 2019-04-22 01:52 | Day surgery (SDC) | payer MEDICARE, OTHER ==
[2018-07-07 09:32] VITALS: Ht 172.7 cm; Wt 96.2 kg
[~2019-04-22] VITALS: Ht 172.7 cm; Wt 96.2 kg
[~2019-04-22 01:52] MED LIST changes: +MV-M1TAB19 PO
[2019-04-22 12:35] VITALS: BP 104/81
--- NOTE | 2019-04-22 14:21 | Short(Outpt) Discharge Summary ---
Discharge Summary Reason for Hosp/Final Diag: (1) Colon cancer screening Status: Chronic Hospital Course & Plan: Colonoscopy completed without anesthesia without problems. Departure Discharge to: Home, Self Care Discharge Instructions Home Meds Reported Medications Mv-Mn/Iron/Fa/Herbal Cmplx#190 (VITAMIN D3 COMPLETE CAPLET) 1 Each Tablet, 2 EACH PO DAILY 04/15/19 Prasugrel Hcl (EFFIENT) 10 Mg Tablet, 10 MG PO DAILY 07/10/18 Pantoprazole Sodium (PANTOPRAZOLE SODIUM) 40 Mg Tablet.dr, 40 MG PO QDAY, TAB.SR 02/06/17 Nitroglycerin (NITROGLYCERIN) 0.4 Mg Tab.subl, 0.4 MG SL Q5MIN PRN for PAIN 02/06/17 Lisinopril (LISINOPRIL) 5 Mg Tablet, 5 MG PO QDAY, TAB 02/06/17 Carvedilol (CARVEDILOL) 6.25 Mg Tab, 6.25 MG PO BID, TAB 02/06/17 Atorvastatin Calcium (ATORVASTATIN CALCIUM) 80 Mg Tablet, 1 TAB PO QDAY, TAB 02/06/17 Aspirin (ASPIR 81) 81 Mg Tablet.dr, 81 MG PO QDAY, TAB 02/06/17 Diet: Regular Activity: As Tolerated Special Instructions: Your colonoscopy was completed without problems and your prep was good. Your colonoscopy was normal, no polyps or cancers. I recommend that your next colonoscopy be in 10 years. LUCIAN BACK MD Apr 22, 2019 14:21
--- NOTE | 2019-04-22 14:35 | NUR ---
1425 PT ARRIVED IN [place] VIA CART, SBAR FROM [facility]. PT ALERT AND STABLE, DR. BACK AT BEDSIDE TO DESCRIBE FINDINGS. PT WOULD LIKE TO GO SOON POSSIBLE , ALLOWED TO DRESS,PT VOIDED WITHOUT DIFFICULTY. 1430 D/C INSTRUCTIONS COVERED, ALL QUESTIONS ANSWERED. PT OUT TO VEHICLE BY FOOT, STEADY ON FEET, ALL BELONGINGS WITH PT.
== END 2019-04-22 14:32 | disposition home or self-care (01) ==
LOC: OR 01:52
PROVIDERS: ATTEND Surgery
DX: Z12.11 Encounter for screening for malignant neoplasm of colon (principal)
CPT/HCPCS: 00812; G0121